=== PATIENT | male | born 1985 | race Caucasian/White ===

== ENCOUNTER → 2017-03-04 | Outpatient (CLI) | payer BC ==
[~2017-03-04] MED LIST: ASPI-390 PO; EPP3/2 IM
--- NOTE | 2017-03-04 12:20 | DIAGNOSTIC IMAGING REPORT ---
MRI OF THE BRAIN WITHOUT IV CONTRAST CLINICAL HISTORY: Migraine headache. COMPARISON STUDY: No priors. TECHNIQUE: MRI of the brain was performed utilizing various T1 and T2-weighted sequences in the axial, sagittal, and coronal planes. IV contrast was not administered for this examination. FINDINGS: Brain parenchyma: There is a 1.4 cm T1 isointense and T2 hyperintense lesion identified in the right middle cerebellar peduncle, best seen on axial T2-weighted image #6 and coronal FLAIR image #20. No additional similar-appearing lesions are identified. There is no associated mass effect. No hemorrhage is seen and there is no restricted diffusion to suggest acute ischemia. Rowland-white matter differentiation is preserved. No extra-axial fluid collection is seen. The cerebellar tonsils are normal in configuration. Ventricles, sulci, and cisterns: Normal in configuration. Pituitary and sella: Unremarkable. Intracranial vasculature: Normal flow voids are maintained at the skull base. Orbits: The bony orbits are grossly intact. Orbital contents are normal in appearance. Sinuses and mastoids: There is a tiny retention cyst in the left maxillary antrum. The paranasal sinuses and mastoid air cells are otherwise clear. Calvarium: Unremarkable. Cervical cord: Partially visualized cervical spinal cord is normal in morphology and signal intensity. IMPRESSION: 1. There is a 1.4 cm indeterminant T2 hyperintense lesion identified in the right middle cerebellar peduncle. Differential considerations include focal demyelination or possibly a mass lesion such as a low-grade glioma. Follow-up with a contrast-enhanced MRI of the brain is recommended for further assessment. 2. No additional intracranial lesions are identified. 3. There is no hemorrhage, mass effect, or evidence of acute ischemia. Electronically signed by: Jake Gunn M.D. 03/04/2017 12:19 PM Dictated Date/Time: 03/04/2017 12:08 PM
--- NOTE | 2017-03-13 08:31 | CODING QUERY NO DIAGNOSIS ---
TREATMENT RENDERED WITHOUT A DIAGNOSIS To promote full compliance with coding requirements relating to patient care, physician participation is requested in all cases of technical sales advisor uncertainty. Please assist us with providing a diagnosis/symptom for the test(s) below: A diagnosis/symptom was not documented on your Order. A valid diagnosis/symptom is required to bill all insurances. Please remember that we are unable to code a diagnosis of rule out, probable, possible, questionable, or suspected. Tests that require a diagnosis: DOS: 03/04/17 * BRAIN MRI DIAGNOSIS: Provider Signature: Date: Thank you [facility] Information Management Once completed, please kindly fax back to [phone] For questions please call [phone]
== END | disposition home or self-care (01) ==
LOC: C.MRI 10:44
PROVIDERS: ATTEND Nurse Practitioner
DX: G93.9 Disorder of brain, unspecified (principal); G43.709 Chronic migraine without aura, not intractable, without status migrainosus; R93.0 Abnormal findings on diagnostic imaging of skull and head, not elsewhere classified; S09.90XS Unspecified injury of head, sequela; X58.XXXS Exposure to other specified factors, sequela

== ENCOUNTER → 2017-03-14 | Outpatient (CLI) | payer BC ==
[~2017-03-14] MED LIST changes: +GADAVIST IV PRN
--- NOTE | 2017-03-14 18:13 | DIAGNOSTIC IMAGING REPORT ---
Brain MRI WITH AND WITHOUT CONTRAST HISTORY: Abnormal brain MRI. Follow-up. TECHNIQUE: Multiplanar multisequence MRI of the brain was performed both before and after the intravenous administration of contrast. COMPARISON STUDY: Brain MRI 03/04/2017. FINDINGS: Small retention cyst within the left maxillary sinus. The mastoid air cells are clear. The major vascular flow-voids at the skull base are well-maintained. No significant change in 1.4 cm round T2 hyperintense lesion within the right middle cerebellar peduncle/cerebellar hemisphere. This does not appear to demonstrate enhancement on the postcontrast sequences. However, this location is partially obscured by the pulsation artifact. There is also an additional 8 mm T2 hyperintense focus within the left inferior thalamus. This is unchanged from the prior study. The midline structures are intact. No hematoma, midline shift, acute infarct. No significant mass effect. IMPRESSION: No change in 1.4 cm T2 hyperintense lesion within the right middle cerebellar peduncle/cerebellar hemisphere. This does not demonstrate appreciable enhancement. There is also an 8 mm T2 hyperintense focus within the left inferior thalamus. 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 Low-grade gliomas are considered less likely but not entirely excluded. Continued follow up is recommended. In addition, recommend a diagnostic lumbar puncture. Electronically signed by: Kalyan Barber M.D. 03/14/2017 6:12 PM Dictated Date/Time: 03/14/2017 5:49 PM
== END | disposition home or self-care (01) ==
LOC: C.MRI 15:45
PROVIDERS: ATTEND Nurse Practitioner
DX: G93.9 Disorder of brain, unspecified (principal); Z87.828 Personal history of other (healed) physical injury and trauma; Z87.898 Personal history of other specified conditions